=== PATIENT | male | born 1990 | race African-American/Black ===

== ENCOUNTER 2021-04-08 13:18 | Inpatient (IN) | payer OTHER ==
[~2021-04-08] VITALS: Ht 188 cm; Wt 81.6 kg
[2021-04-08 14:37] LABS: RED BLOOD COUNT 5.62 M/UL (4.20-5.50); WHITE BLOOD COUNT 10.8 K/UL (4.5-11.0)
[2021-04-08 15:01] LABS: BUN/CREATININE RATIO 7 (0-10)
[2021-04-09 05:51] LABS: WHITE BLOOD COUNT 8.7 K/UL (4.5-11.0)
[2021-04-09 05:54] LABS: HEMOGLOBIN 13.3 gm/dl (14.0-17.5); RED BLOOD COUNT 4.72 M/UL (4.20-5.50)
[2021-04-09 06:26] LABS: BUN/CREATININE RATIO 3 (0-10)
[2021-04-09 12:02] LABS: BUN/CREATININE RATIO 3 (0-10)
[2021-04-10 07:10] LABS: HEMOGLOBIN 13.8 gm/dl (14.0-17.5); RED BLOOD COUNT 4.93 M/UL (4.20-5.50); WHITE BLOOD COUNT 6.6 K/UL (4.5-11.0)
[2021-04-10 07:36] LABS: BUN/CREATININE RATIO 3 (0-10)
[2021-04-11 04:30] LABS: HEMOGLOBIN 13.1 gm/dl (14.0-17.5); RED BLOOD COUNT 4.66 M/UL (4.20-5.50); WHITE BLOOD COUNT 7.3 K/UL (4.5-11.0)
[2021-04-11 04:41] LABS: BUN/CREATININE RATIO 7 (0-10)
[2021-04-11] MEDS ORDERED: PROTONIX40 MG PO (11:20)
[2021-04-11] MEDS ORDERED: [UNRECOGNIZED DRUG - OTHER] PO (11:20)
[2021-04-11] MEDS ORDERED: NORVASC5 MG PO (11:20)
[2021-04-11] MEDS ORDERED: LEVAQUIN PO (11:26)
== END 2021-04-11 12:51 | disposition short-term general hospital (02) | DRG 440 ==
LOC: ER1 13:18 → CDU 16:14 → M/S 16:14
PROVIDERS: Emergency Medicine; ADMIT Internal Medicine
DX: K85.20 Alcohol induced acute pancreatitis without necrosis or infection (principal); K52.9 Noninfective gastroenteritis and colitis, unspecified; Z20.822 Contact with and (suspected) exposure to COVID-19; E87.6 Hypokalemia; Q53.112 Unilateral inguinal testis; R79.89 Other specified abnormal findings of blood chemistry; F10.20 Alcohol dependence, uncomplicated; K59.00 Constipation, unspecified; F17.210 Nicotine dependence, cigarettes, uncomplicated; Z83.3 Family history of diabetes mellitus; Z82.49 Family history of ischemic heart disease and other diseases of the circulatory system; Z87.828 Personal history of other (healed) physical injury and trauma
CPT/HCPCS: 36415; 76705; 80048; 80053; 80061; 81001; 83036; 83605; 83690; 83735; 84132; 84439; 84443; 85025; 85610; 85730; 96365; 96372; 96375; 96376; 99285; C9113; G0480; J0696; J1650; J1885; J2270; J2405; J2543; J3475; J3480; J7030; Q9967; U0002